=== PATIENT | female | born 1970 | race Caucasian/White ===

== ENCOUNTER → 2016-08-11 | Outpatient (CLI) | payer OTHER | LOC: FIMAGING 08:52 | DX: Z08 Encounter for follow-up examination after completed treatment for malignant neoplasm (principal); C80.1 Malignant (primary) neoplasm, unspecified ==

== ENCOUNTER 2016-08-12 10:01 | Day surgery (SDC) | payer OTHER ==
[2016-08-12] MEDS ORDERED: LIDOCAINE 1% 5 ML SDV ID PRN (11:00)
[2016-08-12] MEDS ORDERED: LR 1,000 ML IV ONE ×2 (11:00→11:05)
[2016-08-12] MEDS ORDERED: NORFLURANE/HFC SPRAY 103.5 ML SPRAY TP ONE (11:00)
[2016-08-12] MEDS ORDERED: fentaNYL 100 MCG/2 ML INJ ONE (11:51)
[2016-08-12] MEDS ORDERED: MIDAZOLAM 2 MG/2 ML VIAL ONE (11:51)
--- NOTE | 2016-08-12 13:14 | GPN ---
[f rep st] PROCEDURE NOTE ORIGINAL REPORT DATE OF PROCEDURE: 08/12/2016 PROCEDURE: Upper endoscopy with biopsy. INDICATION AND PREPROCEDURE DIAGNOSIS: Epigastric symptoms, including a sense of "fullness" especially after eating, with an esophagogastroduodenoscopy requested. She has a known pancreatic neoplasm, and will be undergoing repeat surgery soon for this reason. She states she recently had a small bowel x-ray performed (which sounds suggestive of a small bowel follow-through), which she states was "negative." POSTPROCEDURE DIAGNOSIS: Essentially normal upper endoscopy. PREMEDICATION: Fentanyl 200 mcg IV, Versed 7 mg IV. The time from administration of sedation to completion of the procedure was 14 minutes. COMPLICATIONS: None. FINDINGS: After informed consent was obtained, the patient was placed in the left lateral decubitus position. Video upper endoscope was placed under direct visualization and advanced. Esophagus was normal. Stomach was normal, except for a small 5 mm nodule seen in the antrum. This was biopsied. Duodenum was normal. Random duodenal biopsies were performed as well. IMPRESSION: Essentially unremarkable upper endoscopy. A small nodule was seen in the antrum of the stomach, but suspect benign, not significant (such as a pancreatic rest, etc.). PLAN: 1. Biopsies of the above nodule pending, but suspect not significant. 2. Duodenal biopsies done to rule out celiac disease (doubt). 3. Otherwise, follow up with her surgeon and primary care physician. Thank you for allowing me to help in the care of this patient. Please refer her to see me in the future, if I can be of further help /[id number] Copy requested to: Dr. Darryl Dahl [address] /[id number]/MODL and [id number] MTDD
== END 2016-08-12 13:45 | disposition home or self-care (01) ==
LOC: FSGY 10:01
PROVIDERS: ATTEND Internal Medicine Gastroenterology
DX: R14.0 Abdominal distension (gaseous) (principal); K29.50 Unspecified chronic gastritis without bleeding
CPT/HCPCS: J2250; J3010

== ENCOUNTER → 2016-09-17 | Outpatient (CLI) | payer OTHER ==
[~2016-09-17] MED LIST: IOPAMIDOL (ISOVUE-300) 100 ML BTL IV ONE
== END ==
LOC: FIMAGING 12:02
DX: K42.0 Umbilical hernia with obstruction, without gangrene (principal); K43.9 Ventral hernia without obstruction or gangrene; C7A.1 Malignant poorly differentiated neuroendocrine tumors; C78.6 Secondary malignant neoplasm of retroperitoneum and peritoneum
CPT/HCPCS: Q9967